=== PATIENT | male | born 1945 | race Caucasian/White ===

== ENCOUNTER → 2020-04-25 09:57 | Outpatient (CLI) | payer MEDICARE, OTHER, SELFPAY ==
[2020-04-25 12:31] LABS: ALB/GLOB Ratio 1.1 RATIO (0.9-2.4); AST(SGOT) 27 U/L (15-37); Alanine Aminotransfer ALT/SGPT 38 U/L (16-61); Albumin, Serum 3.7 g/dL (3.2-5.0); Alkaline Phosphatase 64 U/L (45-117); BUN 17 mg/dL (7-18); BUN/Creat Ratio 19.4 RATIO (10-20); Calcium,Total 8.6 mg/dL (8.5-10.1); Chloride 105 mmol/L (98-107); Cholesterol 185 mg/dL (200); Creatinine, Serum 0.88 mg/dL (0.70-1.30); EST Glomerular Filtration Rate 90 mL/min (>60); Est Glom Filt Rate - Afr Amer 109 mL/min (>60); Globulin 3.3 g/dL (2.2-4.2); Glucose 99 mg/dL (74-106); Potassium 4.3 mmol/L (3.5-5.1); Sodium Level 136 mmol/L (136-145); Triglycerides 50 mg/dL
[2020-04-25 12:32] LABS: Anion Gap 4 (5-15); High Density Lipoprotein 108 mg/dL; PSA,Total - Annual Screen 0.34 ng/mL (0.00-4.00); Very Low Density Lipoprotein 10 mg/dL (5-40)
== END ==
PROVIDERS: PCP Family Medicine; Referring Provider Family Medicine; Visit Provider Family Medicine
DX: E78.00 Pure hypercholesterolemia, unspecified (principal); N40.0 Benign prostatic hyperplasia without lower urinary tract symptoms; Z12.5 Encounter for screening for malignant neoplasm of prostate
CPT/HCPCS: 36415; 80053; 80061; 84153; G0103

== ENCOUNTER 2020-12-12 13:16 | Day surgery (SDC) | payer MEDICARE, OTHER, SELFPAY ==
--- NOTE | 2020-12-05 13:27 | NURSING ---
PATIENT RECEIVED PFIZER VACCINE X2 LAST DOSE 10/25/20
--- NOTE | 2020-12-11 08:36 | EKG12_ITS ---
Test Reason : PRE OP Blood Pressure : / mmHG Vent. Rate : 054 BPM Atrial Rate : 054 BPM P-R Int : 208 ms QRS Dur : 082 ms QT Int : 420 ms P-R-T Axes : 032 014 033 degrees QTc Int : 398 ms Sinus bradycardia Otherwise normal ECG Confirmed by MICHELE VALENTE, CESAR ([id number]), general expeditor ALANA JAUREGUI ([id number]) on 12/12/2020 2:45:01 PM Referred By: Dane Ramirez Confirmed By:MELISSA BAUTISTA MD
[2020-12-12] VITALS (9 sets, daily range): BP systolic 121–142; BP diastolic 72–85; PULSE 48–63; RESP 14–18; TEMP 36.3–36.6; O2SAT 95–99; BMI 25.7
[2020-12-12] MEDS: Lactated Ringers 1,000 ML 100 ML IV (13:56)
--- NOTE | 2020-12-12 14:34 | PCM.HP.STD ---
Problem List (1) BPH with obstruction/lower urinary tract symptoms Status: Acute History of Present Illness Date of Admission: 12/12/20 Chief Complaint: BPH with obstruction The patient is a 74 year old male with a large obstructive prostate and significant voiding symptoms he is back to medical therapy at this point I recommend we proceed with a transurethral resection of the prostate with bipolar Olympus system. We document the risks and benefits of the surgery and he signed a consent form. Past Medical History Allergies clindamycin Allergy (Verified 12/12/20 13:39) Rash Penicillins Allergy (Verified 12/12/20 13:39) Rash Home Medications: Ambulatory Orders Medication Instructions Recorded Aspirin [Lo-Dose Aspirin EC] 81 mg PO DAILY 12/05/20 Finasteride [Proscar] 5 mg PO DAILY 12/05/20 Tamsulosin HCl [Flomax] 0.4 mg PO BID 12/05/20 Surgical History: no surgical history Smoking Status: Never smoker Tobacco Use: Non-smoker Review of Systems Constitutional: Denies: Chills, Fever, Weight Change HEENT: Denies: Head Aches, Sinus Congestion, Sinus Drainage Cardiovascular: Denies: Chest Pain, Palpitations Respiratory: Denies: Cough, Shortness of breath at rest, Sputum production Gastrointestinal: Denies: Abdominal Pain, Nausea, Vomiting Genitourinary: Denies: Dysuria Musculoskeletal: Denies: Joint Pain, Joint Tenderness Skin: Denies: Rash, Wounds Neurological: Denies: Numbness, Tingling, Focal weakness Psychiatric: Denies: Anxiety, Depression, Homicidal Ideations, Suicidal Ideations Hematologic/ Lymphatic: Denies: Easy Bruising, Easy Bleeding VTE Information - Inpt Only VTE Present on Admission: No - Physical Exam Vitals/I&O's: Vital Signs Temp Pulse Resp BP Pulse Ox 97.8 F 56 L 16 142/84 H 97 12/12/20 13:42 12/12/20 13:42 12/12/20 13:42 12/12/20 13:42 12/12/20 13:42 Oxygen Delivery Method Room Air Weight: 88.4 kg Body Mass Index (BMI) 25.7 General: Alert, Oriented x3, Cooperative HEENT: Atraumatic, PERRLA, EOMI, Normocephalic Neck: Supple, No JVD, Negative Carotid Bruits Lungs: Clear to auscultation, Normal air movement Cardiovascular: Regular rate, No murmurs Abdomen: Bowel Sounds Present, Soft, Non Tender Extremities: No edema, Capillary Refill Less than 3 Seconds Skin: No rashes, No breakdown Musculoskeletal: No Tenderness to Palpation of Joints or Extremities Neurological: Cranial nerves II-XII grossly intact Psych/Mental Status: Normal Affect, Appropriate Current Medications Cefazolin Sodium 2 gm/ Sodium (Chloride) 110 mls @ 150 mls/hr IV PREOP ONE Stop: 12/12/20 15:48 Lactated Ringer's () 1,000 mls @ 100 mls/hr IV .Q10H PABLO Last Admin: 12/12/20 13:56 Dose: 100 mls/hr Documented by: Assessment/Plan All Active Problems BPH with obstruction/lower urinary tract symptoms (Acute) Plan to proceed with a transurethral resection of the prostate.
--- NOTE | 2020-12-12 14:37 | DCINST_ITS ---
Discharge Diet: Light diet - advance as tolerated Call your doctor if your incision/area has: Sudden Increased Bleeding Call your doctor if you observe: Fever of 101 or Higher Suture Line Care: Avoid Pulling/Pushing, Avoid Pinching/Bending Instructions: Transurethral Resection of the Prostate (TURP): Home Recovery Allergies/Adverse Reactions: Allergies clindamycin Allergy (Verified 12/12/20 13:39) Rash Penicillins Allergy (Verified 12/12/20 13:39) Rash Medications to take at Discharge Aspirin [Lo-Dose Aspirin EC] 81 mg PO DAILY 12/05/20 Finasteride [Proscar] 5 mg PO DAILY 12/05/20 Tamsulosin HCl [Flomax] 0.4 mg PO BID 12/05/20 Ciprofloxacin [Cipro] 500 mg PO BID #14 tab 12/12/20 Primary Care Physician: Albert Robertson MD [Primary Care Provider] - Test Results: Test results from this visit will be discussed in further detail at your follow- up appointment, if applicable. Please Follow Up With: Dane Ramirez MD When: in 2 weeks, please call to make an appointment.
[2020-12-12] MEDS: Cefazolin 2 GM in 0.9% Normal Saline 100 ML IV (15:05)
--- NOTE | 2020-12-12 15:15 | PROS_PTH ---
PATIENT: LEANA HDEZ LOC: [facility] – [place] U#:[id number] AGE/SX: 74/M ROOM: RE12/12/[address]: Dr. Dane Ramirez MD : 1945 BED: DIS: 12/13/2020 SPEC #: [id number] RECD: 12/15/20 11:10 STATUS: JAJA REShannen #: [id number] STEVE: 12/12/20 15:[address]: Dane Ramierz DEPT: SURGICAL PATHOLOGY RECD BY: Brianna Paniagua ENTERED: 12/15/20 13:09 SP TYPE: TURP OTHR DR: Dr. Albert Robertson MD Tissues: Prostate, NOS Procedures: Surgery Specimen Level IV HEADER OPERATION: Cysto, TUR prostate, Olympus PRE-OP DIAGNOSIS: BPH with obstruction/lower urinary tract symptoms TISSUE SUBMITTED: Prostate chips MICROSCOPIC DIAGNOSIS Prostate, transurethral resection: Benign nodular hyperplasia, glandular and stromal types. Mild chronic inflammation. Urothelium and mild chronic inflammation. AM:weston 12/16/2020 MICROSCOPIC DESCRIPTION Slides are reviewed. GROSS DESCRIPTION Received is one container labeled with the patient's name and designated prostate chips. The specimen consists of multiple irregular fragments of pink-leonard, rubbery, soft tissue that in aggregate weigh 8.9 gm and measure in aggregate 6 x 6 x 0.3 cm. The entire specimen is submitted in eight cassettes. / SJ:weston 12/15/20 TC:3 CPT: 88962
--- NOTE | 2020-12-12 15:38 | OP.PCM_ITS ---
Problem List (1) BPH with obstruction/lower urinary tract symptoms Status: Acute Report of Operation Date of Procedure: 12/12/20 Pre-Operative Diagnosis: BPH with obstruction Post-Operative Diagnosis: Same Surgery/Procedure Performed:: Transurethral resection of the prostate Description of Surgical Findings:: In the preoperative setting I discussed with the patient how the surgery would be done with expect afterwards. We discussed how a prostate resection is done and we discussed the risk of the surgery including, bleeding, infection, retrograde ejaculation, changes with ejaculation or intercourse,. We discussed the possibility that the resection of the prostate may not alleviate his urinary symptoms. We discussed the small risk of developing scar tissue along the urethral channel and strictures. We also discussed the chance of the prostate could grow back and he may need further surgery or treatment in the future for prostate problems. Patient was taken back to the operating room, timeout procedure was performed, he was identified and marked and placed on the operating room table. He underwent general anesthesia. He was placed in dorsolithotomy position. Penis and testicles were prepped and draped in usual sterile fashion. Went into the bladder using the visual obturator with a resectoscope. Once inside the bladder identified the right and left ureteral orifice. I then identified the prostate and the anatomy of the prostate. I marked out the area of the sphincter and the verumontanum was identified. I then proceeded with the prostate resection first resected the median lobe. And then resected the right lobe of the prostate. Then to resect the left lobe of the prostate. I then resected the apical tissue of the prostate. Made sure that there was no injury to the sphincter or the verumontanum was still intact. At the end of the resection all the chips were Ellik out of the bladder. I then identified the left and right ureteral orifice and these were confirmed to be in good position and effluxing and not injured. The resectoscope was removed, a 22 Estonian catheter was placed into the bladder on continuous irrigation. And the urine was fairly light pink color and draining normally. He was taken back to the PACU in good condition. Type of Anesthesia:: General Drains: 22fr 3 way - Admit VTE Documentation VTE Present on Admission: No VTE Mechan Device Prophylaxis: SCD's
[2020-12-12] MEDS: Ciprofloxacin 400 MG/200 ML BAG 200 MG IV (22:35)
[2020-12-12] MEDS: Tamsulosin HCl 0.4 MG Capsule PO (22:35)
[2020-12-13 02:16] VITALS: BP 124/76; PULSE 54; RESP 18; TEMP 36.3; O2SAT 95
[2020-12-13] MEDS: Acetaminophen 325 MG Tablet PO ×2 (02:16→15:43)
[2020-12-13] MEDS: Lactated Ringers 1,000 ML 125 ML IV (03:11)
[2020-12-13 08:10] VITALS: BP 129/71; PULSE 50; RESP 16; TEMP 36.6; O2SAT 99
[2020-12-13] MEDS: Ciprofloxacin 400 MG/200 ML BAG 200 MG IV (08:16)
[2020-12-13] MEDS: Tamsulosin HCl 0.4 MG Capsule PO (08:16)
[2020-12-13] MEDS: Finasteride 5 MG Tablet PO (08:16)
[2020-12-13 13:59] VITALS: BP 129/76; PULSE 69; RESP 16; TEMP 36.3; O2SAT 97
--- NOTE | 2020-12-13 16:02 | NURSING ---
1530 pt voided, but feels more uncomfortable, bladder scan done for 240, decided to insert bruno. pt was instructed on how to remove it on . He verbalized understanding. Instructed him also to keep the bag below the bladder, to avoid back up of urine.
== END 2020-12-13 16:00 | disposition home or self-care (01) ==
LOC: SDC 13:17 → AC 13:17 → MS3 17:01
PROVIDERS: PCP Family Medicine; Referring Provider Urology; Visit Provider Urology
PROC: (CPT 52601; principal; 2020-12-12 15:05)
DX: N40.1 Benign prostatic hyperplasia with lower urinary tract symptoms (principal); N41.1 Chronic prostatitis; N13.8 Other obstructive and reflux uropathy; Z79.82 Long term (current) use of aspirin; Z88.0 Allergy status to penicillin
CPT/HCPCS: 00914; 52601; 88305; 93005; 99251; J7120; G0463; J0744; J2405

== ENCOUNTER → 2021-03-04 08:56 | Outpatient (CLI) | payer MEDICARE, OTHER, SELFPAY ==
[2020-12-12 17:31] VITALS: BMI 25.7
--- NOTE | 2021-03-04 09:00 | AAVD_ITS ---
Reason For Study: AAA w/o rupture Aorta Measurements Aorta Doppler Measurements Proximal aorta measures2.28 x 2.23cm. in cross- Peak systolic flow velocities within the proximal sectional axis. aorta measure 85.5 cm/sec. Proximal aorta measures2.28cm. in longitudinal Peak systolic flow velocities within the mid aorta axis. measure 96.1 cm/sec. Mid aorta measures2.3 x 2.19cm. in cross-sectionalPeak systolic flow velocities within the distal axis. aorta measure 62.2 cm/sec. Mid aorta measures2.31cm. in longitudinal axis. Distal aorta measures2.25 x 2.29cm. in cross- sectional axis. Distal aorta measures2.29cm. in longitudinal axis. Left Iliac Artery Left iliac artery measures 1.44 x 1.48 cm. in the cross-sectional axis. Left iliac artery measures 1.37 cm. in the longitudinal axis. Peak systolic velocity in the left iliac artery measures 56.0 cm/sec. Right Iliac Artery Right iliac artery measures 1.39 x 1.42 cm. in the cross-sectional axis. Right iliac artery measures 1.31 cm. in the longitudinal axis. Peak systolic velocity in the right iliac artery measures 65.8 cm/sec. VL/Abd Aortic/IVC Duplex scan Interpretation Summary Proximal abdominal aorta 2.28 x 2.23 cm in diameter Mid abdominal aorta 2.3 x 2.19 cm in diameter Distal abdominal aorta 2.25 x 2.29 cm in diameter Normal aortic flow rates noted Left common iliac artery mildly ectatic at 1.44 x 1.48 cm diameter with normal flow rate Right common iliac artery slightly ectatic at 1.39 x 1.42 cm with normal flow r ate. Ordering Physician: Albert Robertson Referring Physician: Albert Robertson Performed By: Susana Mark RVT, RDCS and Student
== END ==
PROVIDERS: PCP Family Medicine; Referring Provider Family Medicine; Visit Provider Family Medicine
DX: I71.4 Abdominal aortic aneurysm, without rupture (principal)
CPT/HCPCS: 93978

== ENCOUNTER → 2021-04-16 11:09 | Outpatient (CLI) | payer MEDICARE, OTHER, SELFPAY ==
[2020-12-12 17:31] VITALS: BMI 25.7
[2021-04-16 15:20] LABS: PSA,Total- Diagnostic 0.44 ng/mL (0.0-4.0)
== END ==
PROVIDERS: PCP Family Medicine; Visit Provider Urology
DX: N40.1 Benign prostatic hyperplasia with lower urinary tract symptoms (principal)
CPT/HCPCS: 36415; 84153

== ENCOUNTER → 2021-08-19 08:29 | Outpatient (CLI) | payer MEDICARE, OTHER, SELFPAY ==
[2021-08-19 10:41] LABS: Anion Gap 5 (5-15); BUN 18 mg/dL (7-18); BUN/Creat Ratio 20.2 RATIO (10-20); Calcium,Total 9.2 mg/dL (8.5-10.1); Chloride 105 mmol/L (98-107); Cholesterol 206 mg/dL (200); Creatinine, Serum 0.89 mg/dL (0.70-1.30); EST Glomerular Filtration Rate 88 mL/min (>60); Est Glom Filt Rate - Afr Amer 106 mL/min (>60); Glucose 99 mg/dL (74-106); High Density Lipoprotein 91 mg/dL; PSA,Total - Annual Screen 0.48 ng/mL (0.00-4.00); Potassium 4.2 mmol/L (3.5-5.1); Sodium Level 137 mmol/L (136-145); Triglycerides 66 mg/dL; Very Low Density Lipoprotein 13 mg/dL (5-40)
== END ==
PROVIDERS: PCP Family Medicine; Referring Provider Family Medicine; Visit Provider Family Medicine
DX: N40.0 Benign prostatic hyperplasia without lower urinary tract symptoms (principal); E78.00 Pure hypercholesterolemia, unspecified
CPT/HCPCS: 36415; 80048; 80061; 84153; G0103

== ENCOUNTER 2022-03-09 06:52 | Day surgery (SDC) | payer MEDICARE, OTHER, SELFPAY ==
[2022-03-09] VITALS (7 sets, daily range): BP systolic 110–175; BP diastolic 76–132; PULSE 51–58; RESP 16; TEMP 36.2–36.4; O2SAT 97–99; BMI 25.4
[2022-03-09] MEDS: Lactated Ringers 1,000 ML 15 ML IV (07:20)
--- NOTE | 2022-03-09 07:24 | PCM.HP.BLA ---
History and Physical Date of Admission: 03/09/22 Intake Vital Signs ? 02/23/2208:05 Height 6 ft 1 in Weight: 195 lb 2 oz BMI 25.7 BP 128/76 H Blood Pressure Location Rt brachial Position Sitting Respiration 16 Pulse 67 Pulse Source Monitor Temp 97.3 F L Temp Source Temporal Pulse Oximetry (%) 98 Oxygen Delivery Method room air Intake Visit Reasons:?Colonoscopy Consult Chief Complaint: colonoscopy consult Ammonia Distiller Required: No Is patient in pain?: No Allergies clindamycin Allergy (Verified 02/22/22 08:06) RashPenicillins Allergy (Verified 02/22/22 08:06) Rash Medications aspirin 81 mg tablet,delayed release 81 mg PO DAILY 12/05/20 [History Confirmed 02/22/22] finasteride 5 mg tablet 5 mg PO DAILY 12/05/20 [History Confirmed 02/22/22] tamsulosin 0.4 mg capsule 0.4 mg PO BID 12/05/20 [History Confirmed 02/22/22] ciprofloxacin HCl 500 mg tablet 500 mg PO BID #14 TABLETS 12/12/20 [Rx Confirmed 02/22/22] PFSH Surgical History?(Updated 02/22/22 @ 08:04 by Elizabeth Lau) H/O hernia repair H/O knee surgery H/O rotator cuff surgery H/O vasectomy Social History?(Updated 02/22/22 @ 08:05 by Elizabeth Lau) Smoking Status:? Never smoker alcohol intake:? current alcohol intake frequency: a few times a week substance use type:? does not use HPI HPI HPI: LEANA HDEZ, is a 76 M who presents to the office today for colonoscopy.? His last colonoscopy was 5 years ago and several polyps were found.? The patient denies any abdominal pain or blood in stool.? He denies family history of colon cancer. ROS General General: No weight change, appetite, fatigue, colon cancer, breast cancer or weakness HEENT HEENT: No difficulty swallowing, eye injury, eye surgery, swollen glands or hoarseness Endo Endocrine: No thyroid disease, diabetes mellitus, thyroid cancer, Hair loss, heat intolerance or cold intolerance Skin Skin: No rash or changing moles Breast Breast: No left breast lump, right breast lump, nipple discharge, breast pain, abnormal mammogram, abnormal US or breast enlargement Musc Musculoskeletal: Yes back problems and arthritis; No rheumatoid arthritis, gout or joint pain Cardio Cardiovascular: No murmur, pacemaker, heart disease, atrial fibrillation, high blood pressure, heart attack, heart stent, palpitations, shortness of breat with exertion or chest pain Psych Psychiatric: No depression, anxiety or hearing voices Resp Respiratory: No shortness of breath, No sleep apnea, No cough, No COPD, No asthma, No emphysema and No wheezing Gastro Gastrointestinal: No abdominal pain, No nausea or vomiting, No diarrhea, No constipation, No blood in stool, No acid reflux, Yes hemorrhoids, No ulcers, No gallbladder problem and No black,tarry stools George Hematologic: No blood thinners, No blood disorders, No bleeding, No anemia and No blood clots Neuro Neurologic: No system reviewed and no additional complaints, except as documented, No as per HPI, No abnormal gait, No abnormal hearing, No abnormal movements, No abnormal speech, No behavioral changes, No burning sensations, No confusion, No convulsions, No disequilibrium, No dizziness, No localized weakness, No frequent falls, No headache(s), No lack of coordination, No loss of vision, No memory loss, No numbness, No other visual disturbances, No radicular pain, No restless legs, No sensory deficit, No syncope, No tingling, No tremor(s), No weakness and No other Exam Const General: cooperative Orientation: alert and oriented x3 [facility] Head: normal to inspection Neck Neck: normal visual inspection and full ROM Chest Chest palpation & inspection: normal inspection of the chest Resp Effort & Inspection: normal respiratory effort Auscultation: clear to auscultation bilaterally Cardio Rate: regular rate Rhythm: regular rhythm GI Inspection: non-distended Palpation: soft and nontender Skin General: no rashes or lesions noted Neuro General: patient alert and patient oriented x3 Extrem General: full ROM Psych Appearance: grossly normal Mental Status: mental status grossly normal Assessment and Plan Assessment and Plan (1) History of colon polyps: ?Status:?Acute ?Plan: Patient has a history of polyps and is due for surveillance colonoscopy. I explained endoscopy in detail to the patient.? I explained the risks including but not limited to stroke or heart attack with anesthesia, perforation of the GI tract, bleeding, infection.? I explained that any of these could necessitate further emergency surgery.? The patient understands and all questions were answered sufficiently.? The patient wishes to proceed with procedure. Minh Ro MD Pager: [facility] [address] [place] [address], [address] [place] [address] Office: I have re-examined the patient. There are no clinical changes since date of exam.
--- NOTE | 2022-03-09 08:28 | OP.CCLET_ITS ---
03/09/2022 Albert Robertson MD [address] [place] [address] Re : Colonoscopy procedure for Fabian Edwards Dear Dr. Robertson This procedure was performed on Wednesday, March 09, 2022. My impressions and recommendations are as follows: Impressions : - The entire examined colon is normal on direct and retroflexion views. - No specimens collected. Recommendations : - Discharge patient to home. - Resume previous diet. - Continue present medications. - Repeat colonoscopy is not recommended due to current age (66 years or older) for screening purposes. My findings are described in the full procedure note, which is enclosed. If I can be of further assistance, please feel free to contact me at Doctor phone number(s): , Work: . Sincerely, Minh Ro MD 03/09/2022 8:27:36 AM This report has been signed electronically.
--- NOTE | 2022-03-09 08:28 | OP.COLON_ITS ---
Patient Name: Fabian Edwards Procedure Date: 03/09/2022 8:01 AM Date of : 1945 Age: 76 Procedure: Colonoscopy Indications: High risk colon cancer surveillance: Personal history of colonic polyps Providers: Minh Ro MD Medicines: Monitored Anesthesia Care Patient Profile: This is a 76 year old male. Refer to note in patient chart for documentation of history and physical. Last Colonoscopy: 5 years ago. Complications: No immediate complications. Procedure: Pre-Anesthesia Assessment: - Prior to the procedure, a History and Physical was performed, and patient medications and allergies were reviewed. The patient's tolerance of previous anesthesia was also reviewed. The risks and benefits of the procedure and the sedation options and risks were discussed with the patient. All questions were answered, and informed consent was obtained. Prior Anticoagulants: The patient has taken no previous anticoagulant or antiplatelet agents. After reviewing the risks and benefits, the patient was deemed in satisfactory condition to undergo the procedure. After I obtained informed consent, the scope was passed under direct vision. Throughout the procedure, the patient's blood pressure, pulse, and oxygen saturations were monitored continuously. The pediatric colonoscope was introduced through the anus and advanced to the cecum, identified by appendiceal orifice and ileocecal valve. The colonoscopy was performed without difficulty. The patient tolerated the procedure well. The quality of the bowel preparation was good. The Colonoscope was introduced through the and advanced to. Scope In: 8:10:15 AM Scope Withdrawal Time 0 hours 5 minutes 54 seconds Scope Out: 8:25:35 AM Total Procedure Duration Time 0 hours 15 minutes 20 seconds Findings: The entire examined colon appeared normal on direct and retroflexion views. Impression: - The entire examined colon is normal on direct and retroflexion views. - No specimens collected. Recommendation: - Discharge patient to home. - Resume previous diet. - Continue present medications. - Repeat colonoscopy is not recommended due to current age (66 years or older) for screening purposes. Procedure Code(s): --- Professional --- 47136, Colonoscopy, flexible; diagnostic, including collection of specimen(s) by brushing or washing, when performed (separate procedure) Diagnosis Code(s): --- Professional --- Z86.010, Personal history of colonic polyps CPT copyright 2017 [employer]. All rights reserved. The codes documented in this report are preliminary and upon livestock exhibitor review may be revised to meet current compliance requirements. Minh Ro MD 03/09/2022 8:27:36 AM This report has been signed electronically. Number of Addenda: 0 Note Initiated On: 03/09/2022 8:01 AM
== END 2022-03-09 08:58 | disposition home or self-care (01) ==
LOC: EN 06:53 → AC 07:17
PROVIDERS: PCP Family Medicine; Referring Provider Family Medicine; Visit Provider Surgery
PROC: 0DJD8ZZ Inspection of Lower Intestinal Tract, Via Natural or Artificial Opening Endoscopic (ICD-10-PCS; CPT 45378; principal; 2022-03-09 07:55)
DX: Z12.11 Encounter for screening for malignant neoplasm of colon (principal); Z86.010 Personal history of colon polyps
CPT/HCPCS: 45378; J7120; J2405

== ENCOUNTER → 2022-05-04 | Outpatient (CLI) | payer MEDICARE, OTHER, SELFPAY ==
[2022-05-04 12:49] LABS: PSA,Total- Diagnostic 0.67 ng/mL (0.0-4.0)
== END | disposition home or self-care (01) ==
LOC: MFPLAB 10:23
PROVIDERS: PCP Family Medicine; Visit Provider Registered Nurse
DX: Z12.5 Encounter for screening for malignant neoplasm of prostate (principal)
CPT/HCPCS: 36415; 84153; G0103

== ENCOUNTER → 2022-07-16 | Outpatient (CLI) | payer MEDICARE, OTHER, SELFPAY ==
--- NOTE | 2022-07-16 06:44 | MRI_ITS ---
STUDY: MRI RIGHT KNEE REASON FOR EXAM: Male, 76 years old. A period TECHNIQUE: Standardized fat and water weighted pulse sequences were obtained in all 3 orthogonal planes. COMPARISON: None. FINDINGS: Intrasubstance degeneration of the posterior horn of medial meniscus without a meniscal tear (sagittal series 5 image 21). Moderate thinning of the articular cartilage of the medial femorotibial compartment (coronal series 7 images 12-22). Normal medial femoral condyle and tibial plateau. Mild MCL sprain with periligamentous edema without discontinuity (coronal series 7 image 17). Normal distal semimembranosus, gracilis and semitendinosus tendons. Marked loss of substance of the body and anterior horn of the lateral meniscus with a complex tear of the midbody remnant and extrusion of the body remnant and posterior horn (coronal series 7 images 10-22). Marked loss of articular cartilage with multiple areas of complete cartilage loss of the lateral femorotibial compartment with extensive reactive subchondral bone marrow edema in the lateral femoral condyle and lateral tibial plateau (coronal series 7 images 8-23). Normal proximal tibiofibular articulation. Normal lateral collateral (fibular) ligament. Normal popliteus tendon. Normal biceps femoris tendon. Normal anterior cruciate ligament (ACL). Normal posterior cruciate ligament (PCL). Lateral subluxation of the patella with mild thinning of the articular cartilage of the patellofemoral compartment (axial series 2 images 7-15). Normal medial and lateral patellar retinaculum. Normal quadriceps tendon. Normal patellar tendon. Normal Hoffa''s fat pad. Moderate-sized joint effusion with both medial and lateral plicae (axial series 2 images 1-16). Focal prepatellar bursitis (sagittal series 5 image 11) The otherwise visualized osseous structures are unremarkable. MRI/Lower Ext Joint Only (Routine) IMPRESSION: Intrasubstance degeneration of the posterior horn of the medial meniscus without a surfacing meniscal tear. Moderate thinning of the articular cartilage of the medial femorotibial compartment. Mild MCL sprain. Marked loss of substance of the body and anterior horn of the lateral meniscus with a complex tear of the body remnant and extrusion of the body remnant and posterior horn. Marked loss of articular cartilage of the lateral femorotibial compartment with multiple areas of full-thickness cartilage loss. Marked reactive subchondral and intramedullary bone marrow edema in the lateral femoral condyle and lateral tibial plateau. Lateral subluxation of the patella with mild thinning of the articular cartilage of the patellofemoral compartment. Focal prepatellar bursitis. Moderate-sized joint effusion with medial and lateral plicae. Electronically Signed: Gustavo Saucedo, at 9:16 EST ,
== END | disposition home or self-care (01) ==
LOC: MRI 06:32
PROVIDERS: PCP Family Medicine; Referring Provider Physician Assistant Surgical; Visit Provider Physician Assistant Surgical
DX: M25.461 Effusion, right knee (principal); M25.561 Pain in right knee
CPT/HCPCS: 73721

== ENCOUNTER → 2022-09-09 | Outpatient (CLI) | payer MEDICARE, OTHER, SELFPAY ==
[2022-09-09 10:26] LABS: Absolute Lymphocyte Count 1.46 X10^3/uL (0.83-4.51); Absolute Neutrophil Count 1.8 X10^3/uL (2.0-7.7); Basophil# 0.03 X10^3/uL; Basophil% 0.7 % (0-1); Eosinophil# 0.32 X10^3/uL; Eosinophils% 7.8 % (0-5); Hematocrit 41.5 % (40-54); Hemoglobin 14.2 g/dL (13.0-16.5); Lymphocyte # 1.46 X10^3/ul (0.83-4.51); Lymphocyte % 35.4 % (19-41); Mean Corp Hgb Conc 34.2 g/dL (32-36); Mean Corpuscular Hgb 30.6 pg (27.0-32.0); Mean Corpuscular Volume 89.4 fL (80-94); Mean Platelet Vol. 9.2 fl (6.2-12.0); Monocyte# 0.46 X10^3/uL; Monocyte% 11.2 % (0-10); NRBC Flagged by Analyzer 0 % (0-5); Neutrophil # 1.83 X10^3/uL (2.7-7.7); Neutrophil % 44.4 % (47-70); Platelet Count 212 K/mm3 (150-450); RBC Distribution Width CV 12.3 % (11.6-14.6); RBC Distribution Width SD 40.6 fl (35.1-43.9); Red Blood Count 4.64 M/mm3 (4.6-6.2); White Blood Count 4.1 K/mm3 (4.4-11.0)
[2022-09-09 10:44] LABS: BUN 14 mg/dL (7-18); BUN/Creat Ratio 18.2 RATIO (10-20); Calcium,Total 8.8 mg/dL (8.5-10.1); Cholesterol 211 mg/dL (200); Creatinine, Serum 0.77 mg/dL (0.70-1.30); EST Glomerular Filtration Rate 104 mL/min (>60); Est Glom Filt Rate - Afr Amer 125 mL/min (>60); Glucose 99 mg/dL (74-106)
[2022-09-09 10:45] LABS: Anion Gap 7 (5-15); Chloride 104 mmol/L (98-107); High Density Lipoprotein 103 mg/dL; PSA,Total - Annual Screen 0.62 ng/mL (0.00-4.00); Potassium 4.2 mmol/L (3.5-5.1); Sodium Level 138 mmol/L (136-145); Triglycerides 56 mg/dL; Very Low Density Lipoprotein 11 mg/dL (5-40)
== END | disposition home or self-care (01) ==
LOC: MFPLAB 08:34
PROVIDERS: PCP Family Medicine; Visit Provider Family Medicine
DX: Z00.00 Encounter for general adult medical examination without abnormal findings (principal); E78.00 Pure hypercholesterolemia, unspecified; Z12.5 Encounter for screening for malignant neoplasm of prostate
CPT/HCPCS: 36415; 80048; 80061; 84153; 85025; G0103

== ENCOUNTER → 2022-09-16 | Outpatient (CLI) | payer MEDICARE, OTHER, SELFPAY ==
--- NOTE | 2022-09-16 07:56 | CT_ITS ---
STUDY: CT SCAN ALL EXTREMITY RIGHT REASON FOR EXAM: Male, 76 years old. Right knee replacement.[facility] protocol. RADIATION DOSAGE (If Supplied By Facility): CTDIvol = ( 18.76 ) mGy, DLP = ( 1242.70 ) mGycm. Individualized dose optimization techniques were used for this CT.? TECHNIQUE: Multiple axial tomographic images of the right hip, right knee and right ankle joints were obtained. Coronal and sagittal reconstruction was obtained as well. COMPARISON: Comparison is made with prior MRI scan of the right knee dated 07/16/2022. FINDINGS: Imaging of the hip joint was obtained. There is good alignment. No significant abnormality is seen. Imaging of the knee joint was obtained. There is a moderate degree of joint space narrowing involving the lateral compartment of the knee joint. Mild degree of osteoarthritis involving the patellofemoral joint. Moderate degree of joint effusion. Imaging of the ankle joint was obtained. There is good alignment. There is evidence of a spur at the insertion of the Achilles tendon. CT/Extremity Lower without Contra IMPRESSION: Moderate degree of the joint space narrowing of the lateral compartment of knee joint. Moderate sized joint effusion. Electronically Signed: Kalyan Hdez MD at 10:36 EST ,
== END | disposition home or self-care (01) ==
LOC: CT 07:54
PROVIDERS: PCP Family Medicine; Visit Provider Specialist
DX: Z01.818 Encounter for other preprocedural examination (principal); I71.20 Thoracic aortic aneurysm, without rupture, unspecified; M25.461 Effusion, right knee; M19.90 Unspecified osteoarthritis, unspecified site; Z96.651 Presence of right artificial knee joint; I25.10 Atherosclerotic heart disease of native coronary artery without angina pectoris; M21.061 Valgus deformity, not elsewhere classified, right knee
CPT/HCPCS: 73700

== ENCOUNTER → 2022-09-21 | Outpatient (CLI) | payer MEDICARE, OTHER, SELFPAY ==
[2022-09-21 18:51] LABS: Albumin, Serum 3.8 g/dL (3.2-5.0)
== END | disposition home or self-care (01) ==
PROVIDERS: PCP Family Medicine; Referring Provider Physician Assistant Surgical; Visit Provider Physician Assistant Surgical
DX: Z01.818 Encounter for other preprocedural examination (principal)
CPT/HCPCS: 36415; 82040

== ENCOUNTER → 2022-09-24 | Outpatient (CLI) | payer MEDICARE, OTHER, SELFPAY ==
--- NOTE | 2022-09-24 14:45 | CT_ITS ---
STUDY: CTA CHEST REASON FOR EXAM: Male, 76 years old. Monitor TAA RADIATION DOSAGE (If Supplied By Facility): CTDIvol = ( 19.75 ) mGy, DLP = ( 345.49 ) mGycm TECHNIQUE: The examination was performed with the intravenous administration of IV 100mL Isovue-370. Post-processing of the angiographic images was performed, with multiplanar reformation and 3D reconstruction. Individualized dose optimization techniques were used for this CT. COMPARISON: None. FINDINGS: Normal enhancement of the main pulmonary artery and right and left pulmonary arteries. Normal enhancement of the bilateral peripheral pulmonary arteries. There is no demonstrated pulmonary embolism. There is aneurysmal dilatation of the ascending aorta. The transverse diameter of the ascending aorta measures 46.8 mm''s. Atherosclerotic plaque formation of the aortic arch. There is no demonstrated aortic dissection. There are calcifications of the coronary arteries. Normal mediastinum. Normal hilar regions. Normal visualized trachea and bronchi. The lungs are well expanded. Mild degree of increased markings at the lung bases suggestive of bibasilar scarring. Normal pleura. Normal chest wall structures. There are degenerative changes of thoracic spine. Small hiatal hernia. Cysts are seen in the upper pole of the left kidney. CT/CTA Chest W/WO Contrast IMPRESSION: Aneurysmal dilatation of the ascending thoracic aorta with a transverse dimension of 46.8 mm. Electronically Signed: Kalyan Hdez MD at 15:32 EST ,
== END | disposition home or self-care (01) ==
LOC: CT 14:43
PROVIDERS: PCP Family Medicine; Referring Provider Internal Medicine Cardiovascular Disease; Visit Provider Internal Medicine Cardiovascular Disease
DX: K44.9 Diaphragmatic hernia without obstruction or gangrene (principal); I71.21 Aneurysm of the ascending aorta, without rupture; I25.10 Atherosclerotic heart disease of native coronary artery without angina pectoris; N28.1 Cyst of kidney, acquired
CPT/HCPCS: 71275; Q9967

== ENCOUNTER → 2022-09-28 | Outpatient (CLI) | payer MEDICARE, OTHER, SELFPAY ==
--- NOTE | 2022-09-28 10:50 | STRESSREP_ITS ---
Stress Test Report Date: 09/29/2022 Procedure: Pharmacologic stress nuclear imaging study Indications: Coronary artery disease Consent: Per the patient Procedure: The patient underwent pharmacologic (Regadenoson 0.4mg ) evaluation with a peak heart rate of 83 beats per minute (58%predicted maximal heart rate) and a peak blood pressure of 122/80 mmHg. The baseline ECG demonstrated normal sinus rhythm. The peak pharmacologic ECG demonstrated no ischemic changes. [There were no cardiac dysrhythmias pretest, during pharmacologic infusion, or recovery]. [There was no complaint of chest discomfort during pharmacologic infusion or recovery]. The patient was injected with 11.2 millicuries of technetium 99m Cardiolite and subsequently rest SPECT Cardiolite nuclear imaging was obtained in the horizontal long, vertical long, and short axis views. The patient underwent pharmacologic (Regadenoson) evaluation. The patient was injected with 33.9 millicuries of technetium 99m Cardiolite and subsequently stress SPECT Cardiolite nuclear imaging was obtained in the horizontal long, vertical long, and short axis views. A gated Cardiolite study at peak stress was obtained. The examination was stopped secondary to completion of protocol. Rest and stress SPECT Cardiolite nuclear imaging status post realignment, normalization, and attenuation correction demonstrate no fixed or reversible perfusion defects. [There is end systolic thickening and brightening]. [The gated Cardiolite study demonstrates myocardial thickening and inward wall mot ion]. The reported LVEF is 60 to %. Impression: 1. Pharmacologic (Regadenoson) evaluation 2. Peak pharmacologic ECG with no ischemic changes. 3. [There were no cardiac dysrhythmias pretest, during pharmacologic infusion, or recovery]. 5. No fixed or reversible perfusion defects noted. 6. The gated Cardiolite study reports an LVEF of 62%. This note was generated with [employer] software. It may contain incorrect words, spelling, and punctuation that were not noted in checking the note before signing.
== END | disposition home or self-care (01) ==
LOC: CVS 06:15
PROVIDERS: PCP Family Medicine; Referring Provider Internal Medicine Cardiovascular Disease; Visit Provider Internal Medicine Cardiovascular Disease
DX: I25.10 Atherosclerotic heart disease of native coronary artery without angina pectoris (principal)
CPT/HCPCS: 78452; 93017; A9500; A4216; J2785

== ENCOUNTER → 2023-08-22 | Outpatient (CLI) | payer MEDICARE, OTHER, SELFPAY ==
[2023-08-22 13:09] LABS: Anion Gap 7 (5-15); BUN 15 mg/dL (7-18); BUN/Creat Ratio 17.5 RATIO (10-20); Calcium,Total 8.6 mg/dL (8.5-10.1); Chloride 105 mmol/L (98-107); Cholesterol 216 mg/dL (200); Creatinine, Serum 0.86 mg/dL (0.70-1.30); EST Glomerular Filtration Rate 91 mL/min (>60); Est Glom Filt Rate - Afr Amer 111 mL/min (>60); Glucose 108 mg/dL (74-106); High Density Lipoprotein 103 mg/dL; PSA,Total- Diagnostic 0.56 ng/mL (0.0-4.0); Potassium 3.9 mmol/L (3.5-5.1); Sodium Level 137 mmol/L (136-145); Triglycerides 84 mg/dL; Very Low Density Lipoprotein 17 mg/dL (5-40)
== END | disposition home or self-care (01) ==
LOC: MFPLAB 09:39
PROVIDERS: PCP Family Medicine; Visit Provider Family Medicine
DX: Z00.00 Encounter for general adult medical examination without abnormal findings (principal); N40.0 Benign prostatic hyperplasia without lower urinary tract symptoms; I10 Essential (primary) hypertension
CPT/HCPCS: 36415; 80048; 80061; 84153

== ENCOUNTER → 2023-10-13 | Outpatient (CLI) | payer MEDICARE, OTHER, SELFPAY ==
[2023-10-13 10:13] LABS: Anion Gap 5 (5-15); BUN 16 mg/dL (7-18); BUN/Creat Ratio 18.8 RATIO (10-20); Calcium,Total 9.4 mg/dL (8.5-10.1); Chloride 103 mmol/L (98-107); Creatinine, Serum 0.85 mg/dL (0.70-1.30); EST Glomerular Filtration Rate 92 mL/min (>60); Est Glom Filt Rate - Afr Amer 111 mL/min (>60); Glucose 105 mg/dL (74-106); Potassium 4.2 mmol/L (3.5-5.1); Sodium Level 134 mmol/L (136-145)
== END | disposition home or self-care (01) ==
PROVIDERS: PCP Family Medicine; Referring Provider Internal Medicine Cardiovascular Disease; Visit Provider Internal Medicine Cardiovascular Disease
DX: I10 Essential (primary) hypertension (principal)
CPT/HCPCS: 36415; 80048

== ENCOUNTER → 2023-10-19 | Outpatient (CLI) | payer MEDICARE, OTHER, SELFPAY ==
--- NOTE | 2023-10-19 06:53 | CT_ITS ---
EXAM: CT ANGIOGRAPHY CHEST WITHOUT AND WITH INTRAVENOUS CONTRAST CLINICAL INDICATION: None provided. TECHNIQUE: Helically acquired angiography images were obtained of the chest without and with intravenous contrast. This CT exam was performed using one or more of the following dose reduction techniques: automated exposure control, adjustment of the mA and/or kV according to patient size, and/or use of iterative reconstruction technique. MIP reconstructed images were created and reviewed. CONTRAST: 100 cc of Isovue-370 IV. RADIATION DOSE: CTDIvol = 13.46 mGy, DLP = 532.97 mGy-cm COMPARISON: 09/24/2022. History: monitor ascending thoraic aorta aneurysm FINDINGS: PULMONARY ARTERIES: Unremarkable. Normal in caliber. No evidence of pulmonary embolism. AORTA: Mild aneurysmal dilatation of the ascending aorta measuring up to 4.1 cm in diameter. Previously this was measured at 4.68 cm. This may have been an over estimation due to measurement in an oblique plane. No evidence of dissection. GREAT VESSELS OF AORTIC ARCH: Unremarkable. Normal in caliber. No evidence of dissection. LUNGS AND PLEURAL SPACES: Unremarkable. No mass. No consolidation or edema. No pleural effusion or thickening. No pneumothorax. HEART: Unremarkable. Heart size is normal. No pericardial effusion. No significant coronary artery calcifications. MEDIASTINUM: Unremarkable. No mediastinal or hilar adenopathy. Esophagus is unremarkable. No hiatal hernia. THYROID: Unremarkable. No thyroid lesions. BONES/JOINTS: Unremarkable. No suspicious lytic or blastic abnormality. KIDNEYS AND URETERS: Simple left renal cysts. No follow-up of these simple cysts is necessary. CT/CTA Chest W/WO Contrast IMPRESSION: 1. Aneurysmal dilatation of the ascending aorta measuring 4.1 cm in diameter. 2. No pulmonary embolism or dissection. Electronically Signed: Jovany Britton MD at 7:50 EST ,
--- OUTSIDE RECORDS SUMMARY | 2023-10-19 06:55 | XMS RPT_ITS | CCD ---
Author Name Unknown Address [facility] [address] [place] [address] Organization [facility] Care Team Providers Care Pharmacy Laboratory Technician Name Role Phone HALLEY VALENTE, DR NBA Nolan Primary Care Physician HALLEY VALENTE., DR. NBA Nolan Attending Killian ROWLEY MD., DR. NBA Nolan Primary Care Killian weldon Encounters Encounter Date Encounter Type Care Provider Facility Start: 08-23-2022 End: 08-24-[address] NBA ROWLEY MD. Facility:B Start: 08-23-2022 End: 08-23-[address] NBA ROWLEY MD [facility] Payers Date Payer Category Payer Medicare [id number] 2022 Private Health Insurance 80y [id number] 1945 Unknown [id number] Social History Date Type Detail Facility Tobacco smoking status No Smoking Status Entered [facility] Sex Assigned At Male [facility] Evaluation + Plan note Note Date & Type Note Facility Evaluation + Plan note No data available for this section [facility] Hospital Discharge instructions Note Date & Type Note Facility Hospital Discharge instructions No data available for this section [facility] Note Note Date & Type Note Facility Note KUNAL PIÑA MD: SIGN, VERIFY Event Display: VL Aorta US/Doppler (for aneurysm) [facility] Summary Purpose Family History No Family History Records Found Advance Directives No Advanced Directives Records Found Additional Source Comments Care Team (unrecognized sect ion and content) Care Team Personnel Name: NBA ROWLEY MD Member Role: Primary Care Physician Address: Address: [address] [place] [address] [place] [phone] (unrecognized sect ion and content) No Status Records Found INFORMATION SOURCE (unrecogn ized section and content) FOR RECORDS PERTAINING TO PATIENTS WHO ARE OR HAVE BEEN ENROLLED IN A CHEMICAL DEPENDENCY/SUBSTANCEABUSE PROGRAM, SOME INFORMATION MAY BE OMITTED. This clinical summary was aggregated from multiple sources. Caution should be exercised in using it in the provision of clinical care. This summary normalizes information from multiple sources, and as a consequence, information in this document may materially change the coding, format and clinical context of patient data. In addition, data may be omitted in some cases. CLINICAL DECISIONS SHOULD BE BASED ON THE PRIMARY CLINICAL RECORDS. [employer] provides no warranty or guarantee of the accuracy or completeness of information in this document.
== END | disposition home or self-care (01) ==
LOC: CT 06:53
PROVIDERS: PCP Family Medicine; Referring Provider Internal Medicine Cardiovascular Disease; Visit Provider Internal Medicine Cardiovascular Disease
DX: I71.20 Thoracic aortic aneurysm, without rupture, unspecified (principal)
CPT/HCPCS: 71275; Q9967

== ENCOUNTER → 2023-11-09 | Outpatient (CLI) | payer MEDICARE, OTHER, SELFPAY ==
--- NOTE | 2023-11-09 13:57 | ECHOD_ITS ---
Reason For Study: AI Procedure This was a 2D Doppler, Color Flow transthoracic echocardiogram. Exam performed in department. Left Ventricle Normal size and thickness. The left ventricular ejection fraction is 65 %. Stage 1 diastolic dysfunction. Right Ventricle Normal right ventricle. Atria The left and right atria are normal. Hypermobile atrial septum. Bubble contrast study is negative for PFO/ASD. Mitral Valve Mild (1+) mitral valve insufficiency. Tricuspid Valve Mild tricuspid valve insufficiency. Normal pulmonary artery pressure. Aortic Valve Trisinus/trileaflet aortic valve. Mild (1+) aortic valve insufficiency. Pulmonic Valve The pulmonic valve is not well visualized. Trivial pulmonic valve insufficiency. Great Vessels Moderately dilated aortic root. Pericardium/Pleural No pericardial effusion. Medication Performed a rapid injection of agitated mix of 9 cc saline and 1cc air to assess for atrial septal defect. MMode/2D Measurements & Calculations LVIDd: 5.2 cm IVSd: 1.1 cm Ao root diam: 4.3 cm LVIDs: 3.6 cm LVPWd: 1.0 cm RVDd: 3.5 cm FS: 30.5 % LAV(MOD-bp): 56.8 ml LVAd ap4: 27.7 cm2 SV(MOD-sp4): 47.3 ml LAV(MOD-bp) Indexed: 27.0 ml/m2 LVLd ap4: 7.9 cm LAV(MOD-sp2): 66.4 ml EDV(MOD-sp4): 78.7 ml LAV(MOD-sp4): 37.5 ml EDV(sp4-el): 82.4 ml LVAs ap4: 15.8 cm2 LVLs ap4: 6.9 cm ESV(MOD-sp4): 31.4 ml ESV(sp4-el): 30.6 ml EF(MOD-sp4): 60.1 % EF(sp4-el): 62.8 % SV(sp4-el): 51.8 ml LA A4 area: 14.0 cm2 LA dimension(2D): 4.0 cm RA A4 area: 12.4 cm2 TAPSE: 2.5 cm Time Measurements MV dec time: 0.25 sec Doppler Measurements & Calculations MV E max edilberto: 42.7 cm/sec Lat Peak E' Edilberto: 4.3 cm/sec Med Peak E' Edilberto: 4.2 cm/sec MV A max edilberto: 71.0 cm/sec E/E' lat: 9.9 E/E' med: 10.3 MV E/A: 0.60 MV dec slope: 168.8 cm/sec2 Ao V2 max: 133.0 cm/sec AI max edilberto: 339.9 cm/sec Ao max P.1 mmHg AI max P.2 mmHg Ao V2 mean: 93.8 cm/sec AI dec slope: 155.3 cm/sec2 Ao mean P.8 mmHg AI P1/2t: 641.1 msec Ao V2 VTI: 23.9 cm LV V1 max: 122.0 cm/sec PA V2 max: 84.6 cm/sec TR max edilberto: 249.6 cm/sec LV V1 max P.9 mmHg TR max P.9 mmHg ECHO/Echo Complete Interpretation Summary The left ventricular ejection fraction is 65 %. Stage 1 diastolic dysfunction. Hypermobile atrial septum. Bubble contrast study is negative for PFO/ASD. Mild tricuspid valve insufficiency. Mild (1+) mitral valve insufficiency. Mild (1+) aortic valve insufficiency. Moderately dilated aortic root. Ordering Physician: Jane Parks Referring Physician: Albert Robertson Performed By: Arabella Cleaning, DARRYL, RVT
--- OUTSIDE RECORDS SUMMARY | 2023-11-09 18:44 | XMS RPT_ITS | CCD ---
Author Name Unknown Address [facility] [address] [place] [address] Organization [facility] Care Team Providers Care Plastic Machine Operator Name Role Phone HALLEY VALENTE, DR NBA Nolan Primary Care Physician HALLEY VALENTE., DR. NBA Nolan Attending Killian ROWLEY MD., DR. NBA Nolan Primary Care Killian weldon Encounters Encounter Date Encounter Type Care Provider Facility Start: 08-23-2022 End: 08-24-[address] NBA ROWLEY MD. Facility:B Start: 08-23-2022 End: 08-23-[address] NBA ROWLEY MD [facility] Payers Date Payer Category Payer Medicare [id number] 2022 Private Health Insurance 80y [id number] 1945 Unknown [id number] Social History Date Type Detail Facility Tobacco smoking status No Smoking Status Entered [facility] Sex Assigned At Male [facility] Evaluation + Plan note Note Date & Type Note Facility Evaluation + Plan note No data available for this section [facility] Hospital Discharge instructions Note Date & Type Note Facility Hospital Discharge instructions No data available for this section [facility] Note Note Date & Type Note Facility Note KUNAL PIÑA MD: SIGN, VERIFY Event Display: VL Aorta US/Doppler (for aneurysm) [facility] Summary Purpose Family History No Family History Records Found Advance Directives No Advanced Directives Records Found Additional Source Comments Care Team (unrecognized sect ion and content) Care Team Personnel Name: NBA ROWLEY MD Member Role: Primary Care Physician Address: Address: [address] [place] [address] [place] [phone] (unrecognized sect ion and content) No Status [...] BE BASED ON THE PRIMARY CLINICAL RECORDS. [employer] provides no warranty or guarantee of the accuracy or completeness of information in this document.
== END | disposition home or self-care (01) ==
LOC: CVS 13:57
PROVIDERS: PCP Family Medicine; Referring Provider Internal Medicine Cardiovascular Disease; Visit Provider Internal Medicine Cardiovascular Disease
DX: I25.10 Atherosclerotic heart disease of native coronary artery without angina pectoris (principal); I71.20 Thoracic aortic aneurysm, without rupture, unspecified; I35.1 Nonrheumatic aortic (valve) insufficiency; I10 Essential (primary) hypertension
CPT/HCPCS: 93306; A4216

== ENCOUNTER → 2023-11-16 | Outpatient (CLI) | payer MEDICARE, OTHER, SELFPAY ==
--- NOTE | 2023-11-16 07:27 | CT_ITS ---
STUDY: CTA CHEST REASON FOR EXAM: Male, 77 years old. TAA RADIATION DOSAGE (If Supplied By Facility): CTDIvol = ( 16.26 ) mGy, DLP = ( 550.54 ) mGycm TECHNIQUE: The examination was performed with the intravenous administration of IV 100mL Isovue-370. Post-processing of the angiographic images was performed, with multiplanar reformation and 3D reconstruction. Individualized dose optimization techniques were used for this CT. COMPARISON: Comparison is made with prior study dated October 19, 2023. FINDINGS: Normal enhancement of the main pulmonary artery and right and left pulmonary arteries. Normal enhancement of the bilateral peripheral pulmonary arteries. There is no demonstrated pulmonary embolism. There is aneurysmal dilatation of the ascending aorta. The transverse diameter of the ascending aorta measures 48 mm''s. Mild atherosclerotic plaque formation of the aortic arch. There is no demonstrated aortic dissection. There are calcifications of the coronary arteries. Normal mediastinum. Normal hilar regions. Normal visualized trachea and bronchi. The lungs are well expanded. Increased linear markings at the lung bases suggestive of a scarring. Normal pleura. Normal chest wall structures. There are degenerative changes of thoracic spine. Scattered small hepatic cysts. Left renal cysts. Small right renal cyst. CT/CTA Chest W/WO Contrast IMPRESSION: Dilatation of the root of the ascending aorta with a transverse dimension of 48 mm. Mild scarring at the lung bases. Electronically Signed: Kalyan Hdez MD at 14:49 EDT ,
--- OUTSIDE RECORDS SUMMARY | 2023-11-16 07:42 | XMS RPT_ITS | CCD ---
Author Name Unknown Address [facility] [id number] [place] [address] Organization [facility] Care Team Providers Care Poly Packer And Heat Sealer Name Role Phone HALLEY VALENTE, DR NBA Nolan Primary Care Physician [phone] HALLEY VALENTE., DR. NBA Nolan Attending Killian ROWLEY MD., DR. NBA Nolan Primary Care Killian weldon Encounters Encounter Date Encounter Type Care Provider Facility Start: 08-23-2022 End: 08-24-[address] NBA ROWLEY MD. Facility:B Start: 08-23-2022 End: 08-23-[address] NBA ROWLEY MD [facility] Payers Date Payer Category Payer Medicare [id number] 2022 Private Health Insurance 80y [id number] 1945 Unknown [id number] Social History Date Type Detail Facility Tobacco smoking status No Smoking Status Entered [facility] Sex Assigned At Male [facility] Evaluation + Plan note Note Date & Type Note Facility Evaluation + Plan note No data available for this section [facility] Hospital Discharge instructions Note Date & Type Note Facility Hospital Discharge instructions No data available for this section [facility] Note Note Date & Type Note Facility Note KUNAL PIÑA MD: SIGN, VERIFY Event Display: VL Aorta US/Doppler (for aneurysm) [facility] Summary Purpose Family History No Family History Records Found Advance Directives No Advanced Directives Records Found Additional Source Comments Care Team (unrecognized sect ion and content) Care Team Personnel Name: NBA ROWLEY MD Member Role: Primary Care Physician Address: Address: [address] [place] [address] [place] [phone] (unrecognized sect ion and content) No Status [...] BE BASED ON THE PRIMARY CLINICAL RECORDS. [employer] provides no warranty or guarantee of the accuracy or completeness of information in this document.
[2023-11-16 07:58] LABS: CREATININE FINGERSTICK < 1.0 mg/dL (0.70-1.30); EGFR FINGERSTICK > 60.0000 mL/min (>60)
== END | disposition home or self-care (01) ==
LOC: CT 07:27
PROVIDERS: PCP Family Medicine; Referring Provider Physician Assistant Medical; Visit Provider Physician Assistant Medical
DX: I71.20 Thoracic aortic aneurysm, without rupture, unspecified (principal)
CPT/HCPCS: 71275; Q9967

== ENCOUNTER → 2024-08-23 | Outpatient (CLI) | payer MEDICARE, OTHER, SELFPAY ==
[2024-08-23 12:43] LABS: Anion Gap 5 (5-15); BUN 14 mg/dL (7-18); BUN/Creat Ratio 16.6 RATIO (10-20); Calcium,Total 9.2 mg/dL (8.5-10.1); Chloride 98 mmol/L (98-107); Cholesterol 200 mg/dL (200); Creatinine, Serum 0.84 mg/dL (0.70-1.30); EST Glomerular Filtration Rate 93 mL/min (>60); Est Glom Filt Rate - Afr Amer 112 mL/min (>60); Glucose 103 mg/dL (74-106); High Density Lipoprotein 98 mg/dL; PSA,Total - Annual Screen 0.64 ng/mL (0.00-4.00); Potassium 4.1 mmol/L (3.5-5.1); Sodium Level 129 mmol/L (136-145); Triglycerides 50 mg/dL; Very Low Density Lipoprotein 10 mg/dL (5-40)
== END | disposition home or self-care (01) ==
LOC: MFPLAB 09:22
PROVIDERS: PCP Family Medicine; Referring Provider Family Medicine; Visit Provider Family Medicine
DX: Z00.00 Encounter for general adult medical examination without abnormal findings (principal); E78.00 Pure hypercholesterolemia, unspecified
CPT/HCPCS: 36415; 80048; 80061; 84153; G0103

== ENCOUNTER → 2024-11-02 | Outpatient (CLI) | payer MEDICARE, OTHER, SELFPAY ==
--- NOTE | 2024-11-02 13:25 | CT_ITS ---
PROCEDURE: CTA CHEST W/WO CONTRAST REASON FOR EXAM: Evaluation for aortic valve regurgitation. TECHNIQUE: CTA imaging of the chest with intravenous contrast. 3D reconstructions. CONTRAST: 100 cc of Isovue 370 was injected intravenously. COMPARISON: Comparison is made with prior study dated November 16, 2023. FINDINGS: Hardware: None. Lymph nodes: No mediastinal hilar or axillary lymphadenopathy. Heart: Normal heart size. No pericardial effusion. Coronary artery calcification. RV/LV Diameter Ratio: N/A Thoracic Aorta: The root of the ascending aorta measures 48 mm. This is unchanged. Pulmonary Vessels: No evidence of acute pulmonary emboli through the major subsegmental branches. Most Proximal Level of Embolus (if embolus present): N/A Lungs and Airways: Stable increased markings at the lung bases suggestive of mild bibasilar scarring. Pleura: No pleural effusion. No pneumothorax. Upper Abdomen: Stable hepatic and renal cysts. Bones: Degenerative changes of the thoracic spine. CT/CTA Chest W/WO Contrast IMPRESSION: Stable examination. One or more dose reduction techniques were used (e.g., Automated exposure contr ol, adjustment of the mA and/or kV according to patient size, use of iterative reconstruction technique). Reading Location: [facility]
== END | disposition home or self-care (01) ==
LOC: CT 13:25
PROVIDERS: PCP Family Medicine; Referring Provider Internal Medicine Cardiovascular Disease; Visit Provider Internal Medicine Cardiovascular Disease
DX: I35.1 Nonrheumatic aortic (valve) insufficiency (principal); I71.20 Thoracic aortic aneurysm, without rupture, unspecified
CPT/HCPCS: 71275; Q9967; A4216

== ENCOUNTER → 2024-11-13 | Outpatient (CLI) | payer MEDICARE, OTHER, SELFPAY ==
--- NOTE | 2024-11-13 07:55 | ECHOD_ITS ---
Reason For Study Reason For Study: AI Procedure This was a 2D Doppler, Color Flow transthoracic echocardiogram. Exam performed in department. Left Ventricle Normal size and thickness. The left ventricular ejection fraction is 65 %. Normal diastology for age. Right Ventricle Normal right ventricle. Atria There is mild biatrial dilatation. Hypermobile atrial septum. Mitral Valve Mild-Moderate (1-2+) mitral valve insufficiency. Tricuspid Valve Mild tricuspid valve insufficiency. Normal pulmonary artery pressure. Aortic Valve Trisinus/trileaflet aortic valve. Mild (1+) aortic valve insufficiency. Pulmonic Valve The pulmonic valve is not well visualized. Great Vessels Mildly dilated aortic root. Pericardium/Pleural No pericardial effusion. MMode/2D Measurements & Calculations LVIDd: 4.6 cm IVSd: 0.99 cm Ao root diam: 4.2 cm LVIDs: 2.6 cm LVPWd: 0.86 cm RVDd: 4.0 cm FS: 44.2 % LAV(MOD-bp): 67.1 ml LVAd ap4: 31.5 cm2 SV(MOD-sp4): 58.7 ml LAV(MOD-bp) Indexed: 33.0 ml/m2 LVLd ap4: 8.3 cm SI(MOD-sp4): 28.9 ml/m2 LAV(MOD-sp2): 73.3 ml EDV(MOD-sp4): 97.5 ml LAV(MOD-sp4): 46.4 ml EDV(sp4-el): 101.4 ml LVAs ap4: 17.6 cm2 LVLs ap4: 6.9 cm ESV(MOD-sp4): 38.9 ml ESV(sp4-el): 38.0 ml EF(MOD-sp4): 60.2 % EF(sp4-el): 62.5 % SV(sp4-el): 63.3 ml LA A4 area: 16.4 cm2 LA dimension(2D): 4.3 cm RA A4 area: 19.0 cm2 TAPSE: 2.5 cm Time Measurements MV dec time: 0.35 sec Doppler Measurements & Calculations MV E max edilberto: 49.0 cm/sec Lat Peak E' Edilberto: 8.1 cm/sec Med Peak E' Edilberto: 5.5 cm/sec MV A max edilberto: 65.3 cm/sec E/E' lat: 6.0 E/E' med: 8.9 MV E/A: 0.75 Ao V2 max: 143.5 cm/sec AI max edilberto: 304.1 cm/sec MV dec slope: 139.9 cm/sec2 Ao max P.2 mmHg AI max P.0 mmHg Ao V2 mean: 113.1 cm/sec Ao mean P.4 mmHg AI dec slope: 115.0 cm/sec2 Ao V2 VTI: 30.0 cm AI P1/2t: 774.7 msec AV (velocity ratio): 0.73 LV V1 max: 106.6 cm/sec PA V2 max: 100.4 cm/sec TR max edilberto: 264.9 cm/sec LV V1 max P.5 mmHg TR max P.1 mmHg LV V1 mean P.6 mmHg LV V1 mean: 77.1 cm/sec LV V1 VTI: 21.9 cm ECHO/Echo Complete Interpretation Summary The left ventricular ejection fraction is 65 %. There is mild biatrial dilatation. Hypermobile atrial septum. Mild-Moderate (1-2+) mitral valve insufficiency. Mild (1+) aortic valve insufficiency. Mildly dilated aortic root. Ordering Physician: Jane Parks Referring Physician: Albert Robertson Performed By: Arabella Cleaning, DARRYL, RVT
== END | disposition home or self-care (01) ==
LOC: CVS 07:54
PROVIDERS: PCP Family Medicine; Referring Provider Internal Medicine Cardiovascular Disease; Visit Provider Internal Medicine Cardiovascular Disease
DX: I35.1 Nonrheumatic aortic (valve) insufficiency (principal); I71.20 Thoracic aortic aneurysm, without rupture, unspecified; I25.10 Atherosclerotic heart disease of native coronary artery without angina pectoris
CPT/HCPCS: 93306

== ENCOUNTER → 2025-04-08 | Outpatient (CLI) | payer MEDICARE, OTHER, SELFPAY ==
[2025-04-08 11:22] LABS: AST(SGOT) 31 U/L (<=37); Alanine Aminotransfer ALT/SGPT 24 U/L (<=46); Albumin, Serum 4.3 g/dL (3.4-4.8); Alkaline Phosphatase 68 U/L (40-129); Bilirubin, Direct 0.31 mg/dL (0.00-0.30); Cholesterol 166 mg/dL (<=200); Globulin 2.3 g/dL (2.2-4.2); Low Density Lipoprotein Calc. 51 mg/dL; Triglycerides 49 mg/dL; Very Low Density Lipoprotein 10 mg/dL (5-40); cholesterol:hdl ratio screen 1.58
== END | disposition home or self-care (01) ==
LOC: MFPLAB 09:10
PROVIDERS: PCP Family Medicine; Visit Provider Nurse Practitioner Gerontology
DX: E78.00 Pure hypercholesterolemia, unspecified (principal)
CPT/HCPCS: 36415; 80061; 80076